=== PATIENT | male | born 1955 | race Caucasian/White ===

== ENCOUNTER 2018-08-01 13:01 | Day surgery (SDC) | payer OTHER, SELFPAY ==
[2018-08-01] MEDS: PROPARACAINE 0.5% OPHTH SOL 2 DROPS EYE-OP (14:15)
[2018-08-01 14:21] VITALS: BP 135/77; PULSE 72; RESP 16; TEMP 37.3; O2SAT 99; BMI 28.8
[2018-08-01] MEDS: CATARACT EYE COMPOUND (10 DROPS/SYRINGE) 3 DROPS EYE-OP (14:30)
--- NOTE | 2018-08-01 15:55 | PM.PREOP ---
Pre-operative Note Interval Note History & Physical reviewed/Exam performed by Physician: Yes Changes to H&P: No
[2018-08-01] MEDS: CHONDROIDTIN/SOD HYALURONATE 1.05 ML SYRINGE INTRAOCULA (16:33)
[2018-08-01] MEDS: MOXIFLOXACIN OPHTH DROPS 3 ML BOTTLE 2 DROPS INJ (16:34)
[2018-08-01] MEDS: PHENYLEPHRINE/LIDOCAINE VIAL (OR) 0.2 ML EYE-OP (16:34)
[2018-08-01] MEDS: BALANCED SALT IRRIG SOLN NO.2 500 ML, EPINEPHrine 1 MG IRR (16:35)
[2018-08-01] MEDS: LIDOCAINE 2% INJ SDV 0.5 ML TOP (16:37)
[2018-08-01] MEDS: TETRACAINE 0.5% OPHTH DROPS 4 ML 2 DROPS EYE-RIGHT (16:37)
[2018-08-01] MEDS: BALANCED SALT IRRIG SOLN NO.2 15 ML IRR (16:38)
--- NOTE | 2018-08-01 16:55 | PM.OP.1 ---
Procedure & Clinicians Procedure: intraocular lens exchange, right Same procedure as scheduled: Yes Indications: aniseikonia and anisometrophia Surgeon: Kevin Alanis Click Yes if Unassisted: Yes Anesthesia Type: MAC +/- Operative Notes Procedure in detail: The patient was brought to the operating suite. The correct patient, surgical site and lens were confirmed. 0.5 % tetracaine drops were placed in the right eye. The patient was prepped and draped in the typical sterile manner. A lid speculum was placed in the eye. A paracentesis port was created at 10 o'clock and at 5 o'clock. 0.1 mL of 1% preservative free lidocaine with phenylephrine was injected into the anterior chamber. Viscoelastic was injected into the anterior chamber. A 2.6mm keratome was used to create a clear corneal temporal incision. A Jas spatula was used to separate the intraocular lens from the anterior capsular edge 360 degrees. Propvisc was injected around the intraocular lens to fee the intraocular lens from the capsule. The intraocular lens was gently rotated out of the bag and into the anterior chamber. The bag complex was noted to have good stability. The capsular bag was inflated with provisc. An Turner ZBOO +20.0D lens was inserted into the capsule. The old lens was then cut into three pieces with MST lens cutters, and all three pieces were removed through the main incision. Viscoelastic was removed and the wound hydrated. The wound was found to be leak free and the eye was assessed to be at normal physiologic pressure. 0.1mL Vigamox was injected into the anterior chamber. The lid speculum was removed and the patient left the operating room in excellent condition. Complications: none Condition: stable Disposition: same day surgery
[2018-08-01 17:08] VITALS: BP 145/88; PULSE 66; RESP 12; TEMP 37; O2SAT 98
== END 2018-08-01 17:10 | disposition home or self-care (01) ==
PROVIDERS: Visit Provider Ophthalmology
PROC: (CPT 66986; principal; 2018-08-01 15:30)
DX: H52.32 Aniseikonia (principal); H52.31 Anisometropia
CPT/HCPCS: 66986; J0171; J2250; J3010